=== PATIENT | female | born 1990 | race African-American/Black ===

== ENCOUNTER 2017-01-26 02:39 | Emergency (ER) | payer SELFPAY ==
--- NOTE | ~2017-01-26 | CR72 ---
[facility] A Service of [facility] / [facility] RADIOLOGY TEXT RESULTS PATIENT: WESLY ARTEAGA LOCATION: [facility] : [birth year] UNIT #: [id number] AGE: [address]: Rosa Isela Tyson APRN SEX: F ORDER DR: [id number] [facility] [address] [place], [place] [address] [id number] E MR#: [id number] Acc #: [id number] NAME: WESLY ARTEAGA : 1990 SEX: F STUDY DATE/TIME: 01/26/2017 2:40 UNIT: [facility] ROOM: STUDY DESCRIPTION: CR Chest Single View Portable Attending Physician: Rosa Isela Tyson A.P.R.N. Ordering Physician: Rosa Isela Tyson A.P.R.N. Primary Care Physician: Primary Care Physician No MEDICAL IMAGING REPORT This report is preliminary unless electronic signature is present EXAM Portable chest INDICATION Shortness of air for 4 days. FINDINGS A portable view of the chest was obtained and compared with 01/28/2016. Heart size and vascularity are normal. The lungs are clear. The bones are unremarkable. IMPRESSION No active disease. Dictated by... Logan Ku M.D. THIS IS AN ELECTRONICALLY VERIFIED REPORT Logan Ku M.D. at 01/26/2017 2:21 PM DARIEN/pili TD: 01/26/2017 05:57 JOB #: [id number] MEDICAL IMAGING REPORT Page 1 of 1 COPY
[~2017-01-26 02:39] MED LIST: BACTRIM DS TABL1 TA1 PO; IBUPROFEN800 MG PO; ZYRTEC PO
== END 2017-01-26 03:30 | disposition home or self-care (01) ==
LOC: CED 02:39
DX: J45.909 Unspecified asthma, uncomplicated (principal)
CPT/HCPCS: 71010; 94640; 99283